=== PATIENT | female | born 1995 | race Caucasian/White ===

== ENCOUNTER 2018-11-01 17:48 | Emergency (ER) | payer SELFPAY ==
[2018-11-01 17:56] VITALS: BMI 33.0
[2018-11-01] MEDS ORDERED: EPIPEN 2-P0.3 MG/0.3 IM (19:33)
[2018-11-01] MEDS ORDERED: PREDNISONE20 MG PO (19:33)
[2018-11-01 20:08] VITALS: BP 127/73
== END 2018-11-01 20:09 | disposition home or self-care (01) ==
LOC: D.ER 17:48
DX: T78.40XA Allergy, unspecified, initial encounter (principal); X58.XXXA Exposure to other specified factors, initial encounter